=== PATIENT | male | born 1995 | race Caucasian/White ===

== ENCOUNTER 2024-02-18 08:35 | Emergency (ER) | payer MEDICAID, OTHER ==
[~2024-02-18] VITALS: Ht 180.3 cm; Wt 63.5 kg
[2024-02-18] MEDS ORDERED: ALBUTEROL SULFATE 2.5 MG/3 ML NEBU ONE (09:24)
[2024-02-18] MEDS ORDERED: IPRATROPIUM BROMIDE 0.5 MG/2.5 ML NEBU ONE (09:24)
[2024-02-18] MEDS: ALBUTEROL SULFATE 2.5 MG/3 ML NEBU NEB ONE (09:27)
[2024-02-18] MEDS: IPRATROPIUM BROMIDE 0.5 MG/2.5 ML NEBU NEB ONE (09:27)
[2024-02-18 09:28] VITALS: O2SAT 100
[2024-02-18] MEDS ORDERED: ALBUTEROL SULFATE 8 GM HFA.AER.AD ONE (09:38)
[2024-02-18 09:43] VITALS: O2SAT 100
[2024-02-18] MEDS: ALBUTEROL SULFATE 8 GM HFA.AER.AD IH PRN (09:43)
[2024-02-18 09:45] VITALS: O2SAT 100
[2024-02-18 09:48] LABS: BASOPHILS % (AUTO) 0.2 % (0.0-2.0); EOSINOPHILS # (AUTO) 0.1 K/uL (0.0-0.7); EOSINOPHILS % (AUTO) 1.2 % (0.0-7.0); HEMOGLOBIN 14.7 g/dL (12.5-16.3); LYMPHOCYTES # (AUTO) 2.6 K/uL (0.8-4.8); LYMPHOCYTES % (AUTO) 43.5 % (20.5-51.5); MEAN CORPUSCULAR HEMOGLOBIN 30.2 uug (23.8-33.4); MEAN CORPUSCULAR HGB CONC 35 g/dL (32.5-36.3); MONOCYTES # (AUTO) 0.4 K/uL (0.1-1.30); MONOCYTES % (AUTO) 7.5 % (0.0-11.0); NEUTROPHILS # (AUTO) 2.8 K/uL (1.8-8.9); NEUTROPHILS % (AUTO) 47.6 % (38.5-71.5); PLATELET COUNT (AUTO) 176 K/uL (152-348); RED BLOOD CELL COUNT(AUTO) 4.88 MIL/uL (4.06-5.63); RED CELL DISTRIBUTION WIDTH 12.5 % (12.1-16.2); WHITE BLOOD COUNT (AUTO) 5.9 K/uL (3.6-10.2)
[2024-02-18 09:49] LABS: CALCIUM 9.2 mg/dL (8.5-10.1); CARBON DIOXIDE 28 mmol/L (21-32); CHLORIDE 104 mmol/L (98-107); DIFFERENTIAL COMMENT 1; GLUCOSE 100 mg/dL (74-106); POTASSIUM 4.5 mmol/L (3.5-5.1); SODIUM SERUM 140 mmol/L (136-145); UREA NITROGEN, BLOOD 13 mg/dL (7-18)
[2024-02-18 10:00] LABS: ALBUMIN 3.8 g/dL (3.4-5.0); BILIRUBIN,DIRECT 0.2 mg/dL (0.0-0.2); BILIRUBIN,TOTAL 1.3 mg/dL (0.2-1.0)
[2024-02-18] MEDS ORDERED: PRED50TA PO (10:16)
[2024-02-18] MEDS ORDERED: predniSONE 50 MG TABLET ONE (10:17)
[2024-02-18] MEDS: predniSONE 50 MG TABLET PO ONE (10:18)
[2024-02-18 10:24] VITALS: BP 121/77; O2SAT 100
== END 2024-02-18 10:25 | disposition home or self-care (01) ==
LOC: ER 08:35
DX: J45.901 Unspecified asthma with (acute) exacerbation (principal); R05.9 Cough, unspecified; F17.200 Nicotine dependence, unspecified, uncomplicated; R07.89 Other chest pain; R06.02 Shortness of breath; Z79.899 Other long term (current) drug therapy
CPT/HCPCS: 80076; 80048; 83880; 85025; 85379; 85730; 84484; 36415; 93005; 71045; 94640; 94664; 99285; J7512; 70030-TC; A4606; A4663; J3535; J3590